=== PATIENT | male | born 1990 | race Caucasian/White ===

== ENCOUNTER 2021-12-11 03:00 | Emergency (ER) | payer MEDICAID ==
[~2021-12-11] VITALS: Ht 170.2 cm; Wt 81.8 kg
[2021-12-11] MEDS ORDERED: LIDOCAINE 1% 10 ML VIAL SQ ONE (04:45)
[2021-12-11] MEDS ORDERED: PERTUSS(ACELL),DIPH,TET VAC/PF 0.5 ML SYRINGE IM. ONE (05:30)
[2021-12-11] MEDS ORDERED: CEPH-558 PO (05:31)
[2021-12-11 05:59] VITALS: BP 129/74
== END 2021-12-11 06:31 | disposition home or self-care (01) ==
LOC: EMS 03:03
DX: S51.011A Laceration without foreign body of right elbow, initial encounter (principal); S50.02XA Contusion of left elbow, initial encounter; Y04.8XXA Assault by other bodily force, initial encounter; Y93.89 Activity, other specified; Y92.89 Other specified places as the place of occurrence of the external cause; Y99.8 Other external cause status
CPT/HCPCS: 12002; 36415; 90471; 90715; 99283; J3490